=== PATIENT | male | born 1975 | race Caucasian/White ===

== ENCOUNTER 2024-08-12 04:49 | Emergency (ER) | payer OTHER, MEDICAID, SELFPAY ==
--- NOTE | 2024-08-12 05:04 | ED_ITS ---
HPI - Skin/Abscess/Foreign Bdy General Chief complaint: Skin/Abscess/Foreign Body Stated complaint: cellilitus both arms Time Seen by Provider: 08/12/24 04:58 Source: patient Mode of arrival: Ambulatory Limitations: no limitations History of Present Illness HPI narrative: Patient is a 48-year-old male here for evaluation of what he states is a cellulitis to both of his arms. He initially had redness and lesions on his left hand. He was seen in outside facility. Was prescribed antibiotics. He states he went [facility]. But he never actually took the antibiotics. He stated that the antibiotics were ?stolen? so he never actually took them. He now states he was having discomfort to his right thumb and redness that is streaking up into his hand into his right forearm. Related Data Previous Rx's Medication Instructions Recorded cephalexin 500 mg capsule 500 mg PO QID 7 days #28 caps 08/12/24 Allergies Allergy/AdvReac Type Severity Reaction Status Date / Time Opioids - Morphine Analogues AdvReac Verified 08/12/24 05:05 Review of Systems Review of Systems Narrative: See HPI Patient History Social History Smoking Status: Current every day smoker Exam Initial Vital Signs Initial Vital Signs: Vital Signs Temperature 98.6 F 08/12/24 05:05 Pulse Rate 77 08/12/24 05:05 Respiratory Rate 16 08/12/24 05:05 Blood Pressure 195/118 H 08/12/24 05:05 Pulse Oximetry 96 08/12/24 05:05 Oxygen Delivery Method Room Air 08/12/24 05:05 Skin Other: Patient with 2 there is of eschar located on the dorsum of the left middle finger and on the ulnar aspect of the left little finger. Minimal surrounding erythema to this. Patient with swelling to the right thumb with redness that extends up past the MCP joint into the back of his hand. Course Orders Ordered: Discontinued Medications Cephalexin HCl (Cephalexin 250 Mg Capsule) 500 mg PO NOW ONE Stop: 08/12/24 05:05 Last Admin: 08/12/24 05:12 Dose: 500 mg Documented By: SRIRAM Vital Signs Vital signs: Vital Signs - 8 hr 08/12/24 05:05 Temperature 98.6 F Pulse Rate 77 Respiratory Rate 16 Blood Pressure 195/118 H Pulse Oximetry 96 Oxygen Delivery Method Room Air MDM - Skin/Abscess/Foreign Bdy MDM Narrative Medical decision making narrative: Physical exam today is consistent with a cellulitis mostly on his right hand. Will place the patient on antibiotics. He was otherwise nontoxic appearing. First dose of antibiotics given here in the ER and a prescription was sent to pharmacy of his choice. He was given return precautions. Expressed understanding and agreement. Discharge Plan Departure Patient Disposition: Home Clinical Impression: Cellulitis Instructions: DI for Cellulitis -- Adult Activity Restrictions/Additional Instructions: [facility] your request. Please take them as directed. Return to the emergency department for new symptoms. Prescriptions: New cephalexin 500 mg capsule 500 mg PO QID 7 Days Qty: 28 0RF Stand Alone Forms: Patient Portal/API
[2024-08-12 05:05] VITALS: BP 195/118; PULSE 77; RESP 16; TEMP 37; O2SAT 96; BMI 31.1
[2024-08-12] MEDS: cephALEXin 250 MG CAPSULE 500 MG PO (05:12)
== END 2024-08-12 05:14 | disposition home or self-care (01) ==
PROVIDERS: Emergency Provider Emergency Medicine
DX: L03.113 Cellulitis of right upper limb (principal)
CPT/HCPCS: 99283